=== PATIENT | female | born 1990 | race Caucasian/White ===

== ENCOUNTER 2021-07-29 11:57 | Emergency (ER) | payer MEDICARE, MEDICAID ==
[~2021-07-29] VITALS: Ht 152.4 cm; Wt 106.0 kg
[2021-07-29 12:18] VITALS: BP 132/82
[2021-07-29] MEDS ORDERED: IBUP-1986 PO (13:07)
[2021-07-29] MEDS ORDERED: ketorolac trometh inj. 60 MG/2 ML VIAL IM ONE (13:15)
== END 2021-07-29 14:16 | disposition home or self-care (01) ==
LOC: ER 11:57
DX: M25.551 Pain in right hip (principal); G89.29 Other chronic pain; Z79.899 Other long term (current) drug therapy
CPT/HCPCS: 96372; 99283; J1885

== ENCOUNTER 2021-07-31 08:39 | Emergency (ER) | payer BC, MEDICAID ==
[~2021-07-31] VITALS: Ht 152.4 cm; Wt 98.0 kg
[~2021-07-31 08:39] MED LIST: IBUP-1986 PO
[2021-07-31 09:20] LABS: BASOPHILS % (AUTO) 0.1 % (0-1); EOSINOPHILS % (AUTO) 0 % (0-6); HEMATOCRIT 32.9 % (35.0-45.0); HEMOGLOBIN 10.9 g/dl (12.0-16.0); LYMPHOCYTES # (AUTO) 0.9 X10'3 (1.1-4.8); LYMPHOCYTES % (AUTO) 5.8 % (21-51); MEAN CORPUSCULAR HEMOGLOBIN 28.9 PG (27.0-31.0); MEAN CORPUSCULAR HGB CONC 33.2 g/dL (33.0-36.5); MEAN CORPUSCULAR VOLUME 87.1 FL (78-98); MEAN PLATELET VOLUME 6.7 FL (7.4-10.4); MONOCYTES # (AUTO) 1.4 X10'3 (0-0.9); MONOCYTES % (AUTO) 8.8 % (2-12); NEUTROPHILS # (AUTO) 13.8 X10'3 (1.8-7.7); NEUTROPHILS % (AUTO) 85.3 % (42-75); PLATELET COUNT 427 X10'3 (140-440); RED BLOOD COUNT 3.78 X10'6 (4.20-5.60); RED CELL DISTRIBUTION WIDTH 13.4 % (11.5-14.5); WHITE BLOOD COUNT 16.1 X10'3 (4.5-11.0)
[2021-07-31 09:41] LABS: BLOOD UREA NITROGEN 7 MG/DL (7-18); BUN/CREATININE RATIO 10.9 (6.6-38.0); CALCIUM 8.3 MG/DL (8.5-10.1); CREATININE 0.64 MG/DL (0.40-0.90); GLUCOSE 121 MG/DL (70-104); eGFR > 90 ML/MIN
[2021-07-31 09:44] LABS: ALANINE AMINOTRANSFERASE 60 U/L (12-78); ALBUMIN 3.5 G/DL (3.4-5.0); ALBUMIN/GLOBULIN RATIO 0.8 (1.1-1.5); ALKALINE PHOSPHATASE 89 IU/L (46-116); ANION GAP 10 (8-16); ASPARTATE AMINO TRANSFERASE 38 U/L (10-37); BILIRUBIN,TOTAL 0.4 MG/DL (0.1-1.0); CHLORIDE 104 MMOL/L (99-107); LIPASE < 50 U/L (73-393); POTASSIUM 3.5 MMOL/L (3.5-5.1); SODIUM 138 MMOL/L (135-145); TOTAL CARBON DIOXIDE 23.6 MMOL/L (24-32); TOTAL PROTEIN 7.7 G/DL (6.4-8.2)
[2021-07-31] MEDS ORDERED: ondansetron 4mg rapidly disintigrating tab PO ONE (10:45)
[2021-07-31] MEDS ORDERED: ketorolac trometh. 30mg/ml inj. IM ONE (10:45)
[2021-07-31] MEDS ORDERED: normal saline 1000ML IV soln IVB ONE (11:15)
[2021-07-31] MEDS ORDERED: morphine 4 MG/ML inj SYRINge IV ONE ×2 (11:15→13:10)
[2021-07-31 11:36] LABS: BASOPHILS % (AUTO) 0.2 % (0-1); EOSINOPHILS % (AUTO) 0 % (0-6); HEMATOCRIT 30.9 % (35.0-45.0); HEMOGLOBIN 10.6 g/dl (12.0-16.0); LYMPHOCYTES # (AUTO) 0.8 X10'3 (1.1-4.8); LYMPHOCYTES % (AUTO) 5.2 % (21-51); MEAN CORPUSCULAR HEMOGLOBIN 29.9 PG (27.0-31.0); MEAN CORPUSCULAR HGB CONC 34.4 g/dL (33.0-36.5); MEAN CORPUSCULAR VOLUME 86.8 FL (78-98); MEAN PLATELET VOLUME 6.8 FL (7.4-10.4); MONOCYTES # (AUTO) 1.4 X10'3 (0-0.9); MONOCYTES % (AUTO) 8.4 % (2-12); NEUTROPHILS # (AUTO) 14.2 X10'3 (1.8-7.7); NEUTROPHILS % (AUTO) 86.2 % (42-75); PLATELET COUNT 405 X10'3 (140-440); RED BLOOD COUNT 3.56 X10'6 (4.20-5.60); WHITE BLOOD COUNT 16.4 X10'3 (4.5-11.0)
[2021-07-31 11:59] LABS: APTT 28 SECONDS (22-32)
--- NOTE | 2021-07-31 13:28 | NUR ---
pt up to bsc with great pain, unable to void at this time. pt returned to bed, medicated with second dose of IV morphine. connected to all monitors.
--- NOTE | 2021-07-31 15:22 | NUR ---
pt reports pain in RLQ, repositioned in bed with pillow under buttocks. pt requesting additional pain meds. will inform .
[2021-07-31] MEDS: morphine 4 MG/ML inj SYRINge IV PRN ×3 (15:46→22:12)
[2021-07-31] MEDS ORDERED: normal saline 1000ml 1,000 ML IV ONE (18:05)
[2021-07-31 19:20] LABS: URINE HCG NEGATIVE (NEG)
[2021-07-31 19:23] LABS: CLARITY,URINE CLEAR (Clear); GLUCOSE, URINE NEGATIVE (Neg); KETONES,URINE 15 mg/dl (Neg); LEUKOCYTE ESTERASE ,URINE NEGATIVE (Neg); NITRITES, URINE NEGATIVE (Neg); OCCULT BLOOD,URINE MODERATE (Neg); PH,URINE 5.5 (4.8-8.0); PROTEIN,URINE NEGATIVE (Neg); UROBILINOGEN,URINE 0.2 E.U/dL (0.2-1.0)
[2021-07-31 19:25] LABS: COLOR,URINE AMBER (Yellow); UA COLLECTION TYPE STRAIGHT CATH
[2021-07-31 19:29] LABS: MUCUS STRANDS MANY /LPF (Neg); SQUAMOUS EPITHELIAL CELL,UR FEW /LPF (FEW)
[2021-07-31 19:30] LABS: BACTERIA,URINE NONE SEEN /HPF (Neg); WBC,URINE 0-4 /HPF (0-4)
[2021-07-31 19:33] LABS: URINE AMPHETAMINE SCREEN NEGATIVE (Neg); URINE BARBITUATE SCREEN NEGATIVE (Neg); URINE BENZODIAZEPINES SCREEN NEGATIVE (Neg); URINE CANNABINOID SCREEN NEGATIVE (Neg); URINE COCAINE SCREEN NEGATIVE (Neg); URINE METHADONE SCREEN NEGATIVE (Neg); URINE OPIATE SCREEN POSITIVE (Neg); URINE PHENCYCLIDINE SCREEN NEGATIVE (Neg)
[2021-08-01] MEDS: morphine 4 MG/ML inj SYRINge IV PRN ×6 (02:32→21:37)
--- NOTE | 2021-08-01 09:44 | NUR ---
to mri via wheelchair with chemical production technician in stable condition.
--- NOTE | 2021-08-01 10:07 | NUR ---
back from mri in stable condition. unable to perform mri, due to size of patient. witnessed pt unable to fit into mri machine.
--- NOTE | 2021-08-01 11:52 | NUR ---
JOHN IVEY SISTER [phone]
--- NOTE | 2021-08-01 11:54 | NUR ---
PT C/O ABD PAIN ON SCALE 10, MS 4MG GIVEN
[2021-08-01] MEDS ORDERED: normal saline 1000ml 1,000 ML IV ONE (15:40)
[2021-08-01] MEDS ORDERED: normal saline 1000ML IV soln IVB ONE (15:40)
--- NOTE | 2021-08-01 16:48 | NUR ---
PT PLACED ON HOSPITAL BED. PT ON PERIOD, PERICARE DONE, LINEN CHANGED. UP TO CHAIR TRANFERRED BY SELF WITH WALKER.
--- NOTE | 2021-08-01 17:03 | NUR ---
pt c/o abd pain 44mg iv ms given
[2021-08-01] MEDS ORDERED: LIDOcaine 2% 10ml TOPICAL JELLY (Urojet) TP ONE (21:35)
[2021-08-01 22:15] LABS: BASOPHILS % (AUTO) 0 % (0-1); EOSINOPHILS % (AUTO) 0.1 % (0-6); HEMOGLOBIN 9.2 g/dl (12.0-16.0); LYMPHOCYTES # (AUTO) 0.9 X10'3 (1.1-4.8); LYMPHOCYTES % (AUTO) 6.7 % (21-51); MEAN CORPUSCULAR HEMOGLOBIN 29.2 PG (27.0-31.0); MEAN CORPUSCULAR HGB CONC 32.8 g/dL (33.0-36.5); MEAN CORPUSCULAR VOLUME 88.9 FL (78-98); MEAN PLATELET VOLUME 6.8 FL (7.4-10.4); MONOCYTES # (AUTO) 1.3 X10'3 (0-0.9); MONOCYTES % (AUTO) 9.3 % (2-12); NEUTROPHILS # (AUTO) 11.6 X10'3 (1.8-7.7); NEUTROPHILS % (AUTO) 83.9 % (42-75); PLATELET COUNT 371 X10'3 (140-440); RED BLOOD COUNT 3.15 X10'6 (4.20-5.60); RED CELL DISTRIBUTION WIDTH 13.7 % (11.5-14.5); WHITE BLOOD COUNT 13.8 X10'3 (4.5-11.0)
[2021-08-01 22:32] LABS: ALANINE AMINOTRANSFERASE 37 U/L (12-78); ALBUMIN 2.6 G/DL (3.4-5.0); ALBUMIN/GLOBULIN RATIO 0.6 (1.1-1.5); ALKALINE PHOSPHATASE 71 IU/L (46-116); ANION GAP 9 (8-16); ASPARTATE AMINO TRANSFERASE 65 U/L (10-37); BILIRUBIN,TOTAL 0.4 MG/DL (0.1-1.0); BLOOD UREA NITROGEN 11 MG/DL (7-18); BUN/CREATININE RATIO 19.6 (6.6-38.0); CALCIUM 8.5 MG/DL (8.5-10.1); CHLORIDE 108 MMOL/L (99-107); CREATININE 0.56 MG/DL (0.40-0.90); GLUCOSE 106 MG/DL (70-104); SODIUM 141 MMOL/L (135-145); TOTAL CARBON DIOXIDE 23.8 MMOL/L (24-32); TOTAL PROTEIN 6.9 G/DL (6.4-8.2); eGFR > 90 ML/MIN
[2021-08-02] MEDS ORDERED: morphine 4 MG/ML inj SYRINge IV ONE (00:45)
[2021-08-02] MEDS: morphine 4 MG/ML inj SYRINge IV PRN ×5 (02:08→22:24)
--- NOTE | 2021-08-02 14:43 | NUR ---
changed pad and adams care done. pulled self to side and pulled self up in bed. stable and in nad.
--- NOTE | 2021-08-02 17:30 | NUR ---
late entry, pt to MRI on monitor with RN, auditor and EMT, pt c/o lower abd pain, HR 134, RR 18 140/84, 96% on 2 liters nasal cannula 0 pt at [facility], gave morphine 4mg IV per Dr Mcgee, 131/89, 137, RR 20, 98% on 2 liters nasal cannula 183 HR 137, 98% 2 liters nasal cannula, pt tolerating MRI well 185 Dr Mcgee gave verbal order for 50 to 100 mcg IV prn pain for medic, pt c/o abd pain 02/01 1909 gave fentanyl 50mcg IV, 130/70, HR 135, RR 18, 98% on 2 liters nasal cannula, pt is finished with MRI, c/o abd pain 02/01. 1929 pt back to room 13, medicated with fentanyl 50mcg IV, HR 134, RR 20, Dr Mcgee aware of HR in 130s. Report to primary nurse,
--- NOTE | 2021-08-02 17:38 | NUR ---
EMS ARRIVED TO TAKE PT TO [facility] FOR MRI. DB BROOKS WENT WITH PT.
[2021-08-02] MEDS ORDERED: piperacillin/tazo 4.5gm/100ml 100 ML IV STA (23:21)
[2021-08-02] MEDS ORDERED: vancomycin/NS 1 GM ADD-VANTAGE 250 ML IV STA (23:21)
[2021-08-03] MEDS: morphine 4 MG/ML inj SYRINge IV PRN ×5 (03:03→13:28)
[2021-08-03] MEDS ORDERED: iohexol 350MG/ML 100ml bottle IV ONE (05:54)
--- NOTE | 2021-08-03 06:20 | NUR ---
Report received from DB Travis.
--- NOTE | 2021-08-03 07:36 | NUR ---
Patient requests breakfast and states night RN ordered it for her. Trays not delivered in ER yet.
[2021-08-03 12:00] VITALS: BP 130/102
--- NOTE | 2021-08-03 12:09 | NUR ---
Report given to DB Curry at [facility].
--- NOTE | 2021-08-03 13:31 | NUR ---
REACH AT BEDSIDE TO TRANSPORT PT TO [facility]. PT GIVAN 4MG MORPHINE IV FOR PAIN/TRANSPORT
== END 2021-08-03 14:01 | disposition designated cancer center or children's hospital (05) ==
LOC: ER 08:39
DX: R19.04 Left lower quadrant abdominal swelling, mass and lump (principal); Z20.822 Contact with and (suspected) exposure to COVID-19; E27.8 Other specified disorders of adrenal gland; R10.84 Generalized abdominal pain; D72.829 Elevated white blood cell count, unspecified; Z79.899 Other long term (current) drug therapy
CPT/HCPCS: 36415; 71275; 74176; 76856; 80053; 80305; 81001; 81025; 83605; 83690; 84145; 85025; 85610; 85730; 86885; 86900; 86901; 87040; 87635; 93005; 93976; 96361; 96374; 96376; 99285; C9803; J2270; J7030; Q9967; 96372; 96375